=== PATIENT | male | born 1950 | race Hispanic/Latino ===

== ENCOUNTER 2019-03-02 08:22 | Day surgery (SDC) | payer MEDICARE, OTHER ==
[2019-03-02 09:41] VITALS: BMI 29.4
[2019-03-02] MEDS ORDERED: Propofol 10 mg/ml Inj (20 ML) ONE (11:38)
[2019-03-02] MEDS ORDERED: Lidocaine Hydrochloride 5 ML INJ ONE (11:39)
[2019-03-02] MEDS ORDERED: Lactated Ringer's 1,000 ML IV ONE (11:40)
[2019-03-02 12:19] VITALS: TEMP 98.2
[2019-03-02 12:51] VITALS: RESP 18
[2019-03-02 13:35] VITALS: BP 121/70; PULSE 64; O2SAT 98
== END 2019-03-02 13:02 | disposition home or self-care (01) ==
LOC: C.ENDO 08:22
PROVIDERS: ATTEND Internal Medicine Gastroenterology
DX: Z86.010 Personal history of colon polyps (principal); K64.8 Other hemorrhoids; K57.30 Diverticulosis of large intestine without perforation or abscess without bleeding
CPT/HCPCS: 45378; J2704; J7120